=== PATIENT | male | born 1960 | race Caucasian/White ===

== ENCOUNTER → 2021-01-27 07:01 | Outpatient (CLI) | payer OTHER, SELFPAY ==
[2021-01-27 10:23] LABS: Absolute Lymphocyte Count 1.28 X10^3/uL (0.83-4.51); Absolute Neutrophil Count 2.9 X10^3/uL (2.0-7.7); Basophil# 0.03 X10^3/uL; Basophil% 0.6 % (0-1); Eosinophil# 0.16 X10^3/uL; Eosinophils% 3.3 % (0-5); Hemoglobin 13.9 g/dL (13.0-16.5); Lymphocyte # 1.28 X10^3/ul (4.0); Lymphocyte % 26.1 % (19-41); Mean Corp Hgb Conc 33.9 g/dL (32-36); Mean Corpuscular Hgb 32.3 pg (27.0-32.0); Mean Corpuscular Volume 95.3 fL (80-94); Mean Platelet Vol. 9.8 fl (6.2-12.0); Monocyte% 10.2 % (0-10); NRBC Flagged by Analyzer 0 % (0-5); Neutrophil # 2.92 X10^3/uL (2.7-7.7); Neutrophil % 59.6 % (47-70); Platelet Count 261 K/mm3 (150-450); RBC Distribution Width CV 13.8 % (11.6-14.6); RBC Distribution Width SD 47.8 fl (35.1-43.9); White Blood Count 4.9 K/mm3 (4.4-11.0)
[2021-01-27 10:42] LABS: AST(SGOT) 21 U/L (15-37); Alanine Aminotransfer ALT/SGPT 31 U/L (16-61); Albumin, Serum 3.6 g/dL (3.2-5.0); Alkaline Phosphatase 69 U/L (45-117); Anion Gap 4 (5-15); BUN 20 mg/dL (7-18); BUN/Creat Ratio 22.6 RATIO (10-20); Calcium,Total 8.7 mg/dL (8.5-10.1); Chloride 106 mmol/L (98-107); Cholesterol 144 mg/dL (200); Creatinine, Serum 0.88 mg/dL (0.70-1.30); EST Glomerular Filtration Rate 94 mL/min (>60); Est Glom Filt Rate - Afr Amer 114 mL/min (>60); Globulin 3.5 g/dL (2.2-4.2); Glucose 90 mg/dL (74-106); High Density Lipoprotein 63 mg/dL; PSA,Total - Annual Screen 7.41 ng/mL (0.00-4.00); Potassium 4.2 mmol/L (3.5-5.1); Protein, Total 7.1 g/dL (6.4-8.2); Sodium Level 139 mmol/L (136-145); Triglycerides 48 mg/dL; Very Low Density Lipoprotein 10 mg/dL (5-40)
== END ==
PROVIDERS: PCP Family Medicine; Referring Provider Family Medicine; Visit Provider Family Medicine
DX: I10 Essential (primary) hypertension (principal); Z12.5 Encounter for screening for malignant neoplasm of prostate
CPT/HCPCS: 36415; 80053; 80061; 84153; 85025; G0103

== ENCOUNTER → 2021-03-14 | Outpatient (CLI) | payer OTHER, SELFPAY ==
--- NOTE | 2021-03-14 | PROSBIL_PTH ---
PATIENT: ASHISH WHITAKER LOC: [facility] U#:[id number] AGE/SX: 60/M ROOM: RE03/14/[address]: Dr. Morris Singh MD : 1960 BED: DIS: 03/14/2021 SPEC #: [id number] RECD: 03/14/21 13:21 STATUS: ANASTASIA THOMPSON #: [id number] KRISTYN: 03/14/21 00:[address]: Morris Singh DEPT: SURGICAL PATHOLOGY RECD BY: Ramez Dee ENTERED: 03/14/21 13:21 SP TYPE: PROST BX [facility] DR: Dr. Tyrone Faria MD Tissues: A - PROSTATE RIGHT B - PROSTATE RIGHT C - PROSTATE RIGHT D - PROSTATE LEFT E - PROSTATE LEFT F - PROSTATE LEFT Procedures: PROSTATE BX HEADER OPERATION: Prostate biopsy PRE-OP DIAGNOSIS: Elevated PSA TISSUE SUBMITTED: A - Right apex, B - Right mid, C - Right base, D - Left apex, E - Left mid, F - Left base MICROSCOPIC DIAGNOSIS A. Right prostate, apex, core biopsy: Prostatic tissue, negative for malignancy. B. Right prostate, mid, core biopsy: Prostatic tissue, negative for malignancy. Focal mild chronic inflammation. C. Right prostate, base, core biopsy: Prostatic tissue, negative for malignancy. Focal mild chronic inflammation. D. Left prostate, apex, core biopsy: Prostatic tissue, negative for malignancy. E. Left prostate, mid, core biopsy: Prostatic tissue, negative for malignancy. F. Left prostate, base, core biopsy: Prostatic tissue, negative for malignancy. Focal mild chronic inflammation. SJ:greta 03/15/2021 MICROSCOPIC DESCRIPTION Slides are reviewed. GROSS DESCRIPTION A - Received is one container designated prostate, right apex. The specimen consists of two elongated fragments of light sue-white soft tissue each measuring 1.5 cm in length and 0.1 cm in diameter. The specimen is totally submitted in one cassette. B - Received is one container designated prostate, right mid. The specimen consists of two elongated fragments of light sue-white soft tissue measuring 1.2 and 1.6 cm in length and 0.1 cm in diameter. The specimen is totally submitted in one cassette. C - Received is one container designated prostate, right base. The specimen consists of two elongated fragments of light sue-white soft tissue each measuring 1.5 cm in length and 0.1 cm in diameter. The specimen is totally submitted in one cassette. D - Received is one container designated prostate, left apex. The specimen consists of two elongated fragments of light sue-white soft tissue measuring 1.5 and 1.7 cm in length and 0.1 cm in diameter. The specimen is totally submitted in one cassette. E - Received is one container designated prostate, left mid. The specimen consists of two elongated fragments of light sue-white soft tissue each measuring 1.6 cm in length and 0.1 cm in diameter. The specimen is totally submitted in one cassette. F - Received is one container designated prostate, left base. The specimen consists of two elongated fragments of light sue-white soft tissue each measuring 1.5 cm in length and 0.1 cm in diameter. The specimen is totally submitted in one cassette. / SJ:rg 03/14/21 TC:3 CPT: 88123 x6
== END | disposition home or self-care (01) ==
LOC: LABSPEC 12:55
PROVIDERS: PCP Family Medicine; Referring Provider Urology; Visit Provider Urology
DX: R97.20 Elevated prostate specific antigen [PSA] (principal)
CPT/HCPCS: 88305; G0416

== ENCOUNTER → 2021-03-24 07:03 | Outpatient (CLI) | payer OTHER, SELFPAY ==
[2021-03-24 10:34] LABS: Anion Gap 7 (5-15); BUN 24 mg/dL (7-18); BUN/Creat Ratio 25.6 RATIO (10-20); Calcium,Total 8.5 mg/dL (8.5-10.1); Chloride 105 mmol/L (98-107); Creatinine, Serum 0.94 mg/dL (0.70-1.30); EST Glomerular Filtration Rate 88 mL/min (>60); Est Glom Filt Rate - Afr Amer 106 mL/min (>60); Glucose 116 mg/dL (74-106); Potassium 3.7 mmol/L (3.5-5.1); Sodium Level 141 mmol/L (136-145)
== END ==
PROVIDERS: PCP Family Medicine; Referring Provider Family Medicine; Visit Provider Family Medicine
DX: I10 Essential (primary) hypertension (principal)
CPT/HCPCS: 36415; 80048

== ENCOUNTER → 2021-09-16 09:36 | Outpatient (CLI) | payer OTHER, SELFPAY ==
[2021-09-16 12:58] LABS: PSA,Total- Diagnostic 5.12 ng/mL (0.0-4.0)
== END ==
PROVIDERS: PCP Family Medicine; Referring Provider Urology; Visit Provider Urology
DX: R97.20 Elevated prostate specific antigen [PSA] (principal)
CPT/HCPCS: 36415; 84153

== ENCOUNTER → 2022-12-19 | Outpatient (CLI) | payer BC, SELFPAY ==
[2022-12-19 11:09] LABS: PSA,Total- Diagnostic 6.61 ng/mL (0.0-4.0)
== END | disposition home or self-care (01) ==
LOC: LAB 10:07
PROVIDERS: PCP Family Medicine; Visit Provider Urology
DX: N40.0 Benign prostatic hyperplasia without lower urinary tract symptoms (principal)
CPT/HCPCS: 36415; 84153

== ENCOUNTER → 2023-01-09 | Outpatient (CLI) | payer BC, SELFPAY ==
[2023-01-09 10:00] LABS: Absolute Lymphocyte Count 0.93 X10^3/uL (0.83-4.51); Absolute Neutrophil Count 3.7 X10^3/uL (2.0-7.7); Basophil# 0.02 X10^3/uL; Basophil% 0.4 % (0-1); Eosinophil# 0.16 X10^3/uL; Eosinophils% 3.1 % (0-5); Hematocrit 41.9 % (40-54); Hemoglobin 14.1 g/dL (13.0-16.5); Lymphocyte # 0.93 X10^3/ul (0.83-4.51); Lymphocyte % 17.8 % (19-41); Mean Corp Hgb Conc 33.7 g/dL (32-36); Mean Corpuscular Hgb 31.6 pg (27.0-32.0); Mean Corpuscular Volume 93.9 fL (80-94); Mean Platelet Vol. 9.8 fl (6.2-12.0); Monocyte# 0.46 X10^3/uL; Monocyte% 8.8 % (0-10); NRBC Flagged by Analyzer 0 % (0-5); Neutrophil # 3.65 X10^3/uL (2.7-7.7); Neutrophil % 69.7 % (47-70); Platelet Count 242 K/mm3 (150-450); RBC Distribution Width CV 13.2 % (11.6-14.6); RBC Distribution Width SD 45.2 fl (35.1-43.9); Red Blood Count 4.46 M/mm3 (4.6-6.2); White Blood Count 5.2 K/mm3 (4.4-11.0)
[2023-01-09 10:18] LABS: ALB/GLOB Ratio 0.9 RATIO (0.9-2.4); AST(SGOT) 20 U/L (15-37); Alanine Aminotransfer ALT/SGPT 26 U/L (16-61); Albumin, Serum 3.6 g/dL (3.2-5.0); Alkaline Phosphatase 66 U/L (45-117); Anion Gap 8 (5-15); BUN 22 mg/dL (7-18); BUN/Creat Ratio 25.5 RATIO (10-20); Calcium,Total 9.1 mg/dL (8.5-10.1); Chloride 103 mmol/L (98-107); Cholesterol 157 mg/dL (200); Creatinine, Serum 0.86 mg/dL (0.70-1.30); EST Glomerular Filtration Rate 96 mL/min (>60); Est Glom Filt Rate - Afr Amer 116 mL/min (>60); Globulin 3.8 g/dL (2.2-4.2); Glucose 101 mg/dL (74-106); High Density Lipoprotein 69 mg/dL; Potassium 4.1 mmol/L (3.5-5.1); Protein, Total 7.4 g/dL (6.4-8.2); Sodium Level 138 mmol/L (136-145); Triglycerides 46 mg/dL; Very Low Density Lipoprotein 9 mg/dL (5-40)
[2023-01-09 10:19] LABS: Hemoglobin A1c 5.6 % (3.8-5.6)
[2023-01-09 10:23] LABS: Microalbumin,Random Urine 9.3 mg/L (NO RANGE EST.)
== END | disposition home or self-care (01) ==
LOC: MTLAB 07:05
PROVIDERS: PCP Family Medicine; Referring Provider Family Medicine; Visit Provider Family Medicine
DX: E66.9 Obesity, unspecified (principal); I10 Essential (primary) hypertension
CPT/HCPCS: 36415; 80053; 80061; 82043; 83036; 85025

== ENCOUNTER → 2024-01-01 | Outpatient (CLI) | payer OTHER, SELFPAY ==
[2024-01-01 11:29] LABS: PSA,Total- Diagnostic 5.34 ng/mL (0.0-4.0)
== END | disposition home or self-care (01) ==
PROVIDERS: PCP Family Medicine; Referring Provider Nurse Practitioner; Visit Provider Nurse Practitioner
DX: R97.20 Elevated prostate specific antigen [PSA] (principal)
CPT/HCPCS: 36415; 84153

== ENCOUNTER → 2024-01-24 | Outpatient (CLI) | payer OTHER, SELFPAY ==
[2024-01-24 15:15] LABS: Absolute Lymphocyte Count 1.07 X10^3/uL (0.83-4.51); Absolute Neutrophil Count 4.4 X10^3/uL (2.0-7.7); Basophil# 0.02 X10^3/uL; Basophil% 0.3 % (0-1); Eosinophil# 0.12 X10^3/uL; Eosinophils% 1.9 % (0-5); Hemoglobin 13.4 g/dL (13.0-16.5); Lymphocyte # 1.07 X10^3/ul (0.83-4.51); Lymphocyte % 17.2 % (19-41); Mean Corp Hgb Conc 32.7 g/dL (32-36); Mean Corpuscular Volume 94.9 fL (80-94); Mean Platelet Vol. 10.2 fl (6.2-12.0); Monocyte% 9.7 % (0-10); NRBC Flagged by Analyzer 0 % (0-5); Neutrophil # 4.38 X10^3/uL (2.7-7.7); Neutrophil % 70.6 % (47-70); Platelet Count 254 K/mm3 (150-450); RBC Distribution Width CV 13.5 % (11.6-14.6); RBC Distribution Width SD 47.1 fl (35.1-43.9); Red Blood Count 4.32 M/mm3 (4.6-6.2); White Blood Count 6.2 K/mm3 (4.4-11.0)
[2024-01-24 15:34] LABS: AST(SGOT) 22 U/L (15-37); Alanine Aminotransfer ALT/SGPT 27 U/L (16-61); Albumin, Serum 3.6 g/dL (3.2-5.0); Alkaline Phosphatase 68 U/L (45-117); Anion Gap 6 (5-15); BUN 20 mg/dL (7-18); BUN/Creat Ratio 25.4 RATIO (10-20); Calcium,Total 9.2 mg/dL (8.5-10.1); Chloride 105 mmol/L (98-107); Cholesterol 145 mg/dL (200); Creatinine, Serum 0.79 mg/dL (0.70-1.30); EST Glomerular Filtration Rate 106 mL/min (>60); Est Glom Filt Rate - Afr Amer 128 mL/min (>60); Globulin 3.6 g/dL (2.2-4.2); Glucose 98 mg/dL (74-106); Hemoglobin A1c 5.4 % (3.8-5.6); High Density Lipoprotein 59 mg/dL; Potassium 4.2 mmol/L (3.5-5.1); Protein, Total 7.2 g/dL (6.4-8.2); Sodium Level 138 mmol/L (136-145); Triglycerides 70 mg/dL; Very Low Density Lipoprotein 14 mg/dL (5-40)
[2024-01-24 15:52] LABS: Microalbumin,Random Urine 8.6 mg/L (NO RANGE EST.); Microalbumin:Creatinine Ratio 5.1 mg/g CRE (<30 mg/g CRE)
== END | disposition home or self-care (01) ==
LOC: MFPLAB 11:59
PROVIDERS: PCP Family Medicine; Visit Provider Family Medicine
DX: I10 Essential (primary) hypertension (principal)
CPT/HCPCS: 36415; 80053; 80061; 82043; 82570; 83036; 85025

== ENCOUNTER → 2025-01-29 | Outpatient (CLI) | payer OTHER, SELFPAY ==
[2025-01-29 10:19] LABS: Absolute Lymphocyte Count 1.22 X10^3/uL (0.83-4.51); Absolute Neutrophil Count 3.1 X10^3/uL (2.0-7.7); Basophil# 0.02 X10^3/uL; Basophil% 0.4 % (0-1); Eosinophil# 0.14 X10^3/uL; Eosinophils% 2.8 % (0-5); Hematocrit 38.1 % (40-54); Hemoglobin 13.2 g/dL (13.0-16.5); Lymphocyte # 1.22 X10^3/ul (0.83-4.51); Lymphocyte % 24.8 % (19-41); Mean Corp Hgb Conc 34.6 g/dL (32-36); Mean Corpuscular Hgb 31.8 pg (27.0-32.0); Mean Corpuscular Volume 91.8 fL (80-94); Mean Platelet Vol. 10.2 fl (6.2-12.0); Monocyte# 0.48 X10^3/uL; Monocyte% 9.8 % (0-10); NRBC Flagged by Analyzer 0 % (0-5); Neutrophil # 3.05 X10^3/uL (2.7-7.7); Platelet Count 246 K/mm3 (150-450); RBC Distribution Width CV 13.4 % (11.6-14.6); RBC Distribution Width SD 44.5 fl (35.1-43.9); Red Blood Count 4.15 M/mm3 (4.6-6.2); White Blood Count 4.9 K/mm3 (4.4-11.0)
[2025-01-29 19:51] LABS: ALB/GLOB Ratio 1.5 RATIO (0.9-2.4); AST(SGOT) 19 U/L (<=37); Alanine Aminotransfer ALT/SGPT 19 U/L (<=46); Albumin, Serum 3.6 g/dL (3.4-4.8); Alkaline Phosphatase 64 U/L (40-129); Anion Gap 12 (5-15); BUN 14 mg/dL (4-19); BUN/Creat Ratio 15.7 RATIO (10-20); Calcium,Total 8.9 mg/dL (7.6-11.0); Carbon Dioxide 22.1 mmol/L (21.0-32.0); Chloride 104 mmol/L (98-108); Creatinine, Serum 0.87 mg/dL (0.70-1.20); EST Glomerular Filtration Rate 98 (>60); Globulin 2.4 g/dL (2.2-4.2); Glucose 99 mg/dL (70-99); PSA,Total - Annual Screen 4.65 ng/mL (0.02-4.00); Potassium 4.3 mmol/L (3.3-5.1); Protein, Total 6.1 g/dL (5.9-8.4); Sodium Level 138 mmol/L (133-145); Total Bilirubin 0.27 mg/dL (0.00-1.30)
[2025-01-29 20:30] LABS: Cholesterol 141 mg/dL (<=200); High Density Lipoprotein 60 mg/dL; Low Density Lipoprotein Calc. 73 mg/dL; Triglycerides 43 mg/dL; Very Low Density Lipoprotein 9 mg/dL (5-40); cholesterol:hdl ratio screen 2.37
== END | disposition home or self-care (01) ==
LOC: MTLAB 07:59
PROVIDERS: PCP Family Medicine; Referring Provider Family Medicine; Visit Provider Family Medicine
DX: I10 Essential (primary) hypertension (principal); N40.0 Benign prostatic hyperplasia without lower urinary tract symptoms
CPT/HCPCS: 36415; 80053; 80061; 84153; 85025; G0103

== ENCOUNTER → 2025-07-02 | Outpatient (CLI) | payer OTHER, SELFPAY ==
--- OUTSIDE RECORDS SUMMARY | 2025-07-02 08:38 | XMS RPT_ITS | CCD ---
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 Role Phone Wade SCHROEDER, Rosario Primary Care Provider Rosario Olvera MD Attending Provider Rosario Olvera MD Referring Provider Rosario Olvera Referring Unavailable Rosario Olvera Attending Unavailable Rosario Olvera Primary Care Unavailable Problems Problem Classification Problem Date Documented Da te Episodic/Chronic Essential hypertension (1 source) Essential (primary) hypertension; Translations: [Essential (primary) hypertension] Onset: 02-03-2025 Chronic Results Test Name Value Interpretation Reference Range Facility Absolute neutrophil countOrd ered By: Rosario Olvera on 01-29-2025 Neutrophils (Bld) [#/Vol] 3.1 10*3/uL 2.0-7.7 [facility] Anion gap in Serum or Plasma Ordered By: Rosario Olvera on 01-29-2025 Anion gap [Moles/Vol] 12 mmol/L 5-15 [facility] Automated blood erythrocyte countOrdered By: Rosario Olvera on 01-29-2025 RBC (Bld) [#/Vol] 4.15 10*6/uL Low 4.6-6.2 [facility] Comment on above: Order Comment: Order Date: 01/27/25 Order Info: [id number] - CBCD Performed By: #### L 501.9910, L500.4050, L500.4100, L100.0100 #### [facility] [address] [place], [place], [address] Automated blood hematocrit ( percentage)Ordered By: Rosario Olvera on 01-29-2025 Hematocrit (Bld) [Volume fraction] 38.1 % Low 40-54 [facility] Comment on above: Order Comment: Order Date: 01/27/25 Order Info: [id number] - CBCD Performed By: #### L 501.9910, L500.4050, L500.4100, L100.0100 #### [facility] [address] [place], [place], [address] Automated lymphocyte count a s percentage of total leukocytesOrdered By: Rosario Olvera on 01-29-2025 Lymphocytes/100 WBC (Bld) 24.8 % Normal 19-41 [facility] Comment on above: Order Comment: Order Date: 01/27/25 Order Info: [id number]- - CBCD Performed By: #### L 501.9910, L500.4050, L500.4100, L100.0100 #### [facility] [address] [place], [place], [id number] BUN/creatinine ratioOrdered By: Rosario Olvera on 01-29-2025 Urea nitrogen/Creatinine [Mass ratio] 15.7 mg/mg 10-20 [facility] Basophil percentageOrdered B y: Rosario Olvera on 01-29-2025 Basophils/100 WBC (Bld) 0.4 % Normal 0-1 [facility] Comment on above: Order Comment: Order Date: 01/27/25 Order Info: [id number]- - CBCD Performed By: #### L 501.9910, L500.4050, L500.4100, L100.0100 #### [facility] [address] [place], [place], [address] Bilirubin, totalOrdered By: Rosario Olvera on 01-29-2025 Bilirubin [Mass/Vol] 0.27 mg/dL Normal 0.00-1.30 [facility] Comment on above: Order Comment: Order Date: 01/27/25 Order Info: [id number] - CMP Order Info: [id number] - LIPID Order Info: [id number] - PSA Performed By: #### L 501.9910, L500.4050, L500.4100, L100.0100 #### [facility] [address] [place], [address] CBC W/Diff, Automatedon 01-04 Absolute Lymph 1.22 X10 3/uL Normal 0.83-4.51 [facility] Comment on above: Order Comment: Order Date: 01/27/25 Order Info: [id number] - CBCD Performed By: #### L 501.9910, L500.4050, L500.4100, L100.0100 #### [facility] [address] [place], [address] Absolute Neut 3.1 X10 3/uL Normal 2.0-7.7 [facility] Comment on above: Order Comment: Order Date: 01/27/25 Order Info: [id number]- - CBCD Performed By: #### L 501.9910, L500.4050, L500.4100, L100.0100 #### [facility] [address] [place], [address] IG% 0.200 Normal 0.0-0.9 [facility] Comment on above: Order Comment: Order Date: 01/27/25 Order Info: [id number] - CBCD Result Comment: IG% - Immature Granulocytes (promyelocytes, myelocytes and metamyelocytes) > 1% indicates that a LEFT SHIFT is Present. Performed By: #### L 501.9910, L500.4050, L500.4100, L100.0100 #### [facility] [address] [place], [address] Nucleated RBC (Bld) [#/Vol] 0 10*3/uL Normal 0-5 [facility] Comment on above: Order Comment: Order Date: 01/27/25 Order Info: [id number] - CBCD Performed By: #### L 501.9910, L500.4050, L500.4100, L100.0100 #### [facility] [address] [place], [place], [address] RDW SD 44.5 fl High 35.1-43.9 [facility] Comment on above: Order Comment: Order Date: 01/27/25 Order Info: [id number] - CBCD Performed By: #### L 501.9910, L500.4050, L500.4100, L100.0100 #### [facility] [address] [place], [place], [id number] Calculated very low density lipoprotein (VLDL) cholesterol measurementOrdered By: Rosario Olvera on 01-29-2025 VLDL Cholesterol 9 mg/dL 5-40 [facility] Carbon dioxide, total [Moles /volume] in Central venous bloodOrdered By: Rosario Olvera on 01-29-2025 CO2 [Moles/Vol] 22.1 mmol/L Normal 21.0-32.0 [facility] Comment on above: Order Comment: Order Date: 01/27/25 Order Info: [id number] - CMP Order Info: [id number] - LIPID Order Info: [id number] - PSA Performed By: #### L 501.9910, L500.4050, L500.4100, L100.0100 #### [facility] [address] [place], [address] Chloride assayOrdered By: Patrick Olvera on 01-29-2025 Chloride [Moles/Vol] 104 mmol/L Normal 98-108 [facility] Comment on above: Order Comment: Order Date: 01/27/25 Order Info: [id number] - CMP Order Info: [id number] - LIPID Order Info: [id number] - PSA Performed By: #### L 501.9910, L500.4050, L500.4100, L100.0100 #### [facility] [address] [place], [address] Comprehensive Metabolic Prof ilon 01-29-2025 ALK PHOS 64 U/L Normal 40-129 [facility] Comment on above: Order Comment: Order Date: 01/27/25 Order Info: [id number] - CMP Order Info: [id number] - LIPID Order Info: [id number] - PSA Performed By: #### L 501.9910, L500.4050, L500.4100, L100.0100 #### [facility] [address] [place], [address] BUN/CRE 15.7 RATIO Normal 10-20 [facility] Comment on above: Order Comment: Order Date: 01/27/25 Order Info: [id number] - CMP Order Info: [id number] - LIPID Order Info: [id number] - PSA Performed By: #### L 501.9910, L500.4050, L500.4100, L100.0100 #### [facility] [address] [place], [address] GAP 12 Normal 5-15 [facility] Comment on above: Order Comment: Order Date: 01/27/25 Order Info: [id number]- - CMP Order Info: [id number] - LIPID Order Info: [id number] - PSA Performed By: #### L 501.9910, L500.4050, L500.4100, L100.0100 #### [facility] [address] [place], [address] GFR/1.73 sq M.predicted among non-blacks MDRD (S/P/Bld) [Vol rate/Area] 98 mL/min/{1.73_m2} Normal >[address] [facility] Comment on above: Order Comment: Order Date: 01/27/25 Order Info: [id number] - CMP Order Info: [id number] - LIPID Order Info: [id number] - PSA Result Comment: mL/m in/1.73m2 CKD-EPI Creatinine Equation (2020) Performed By: #### L 501.9910, L500.4050, L500.4100, L100.0100 #### [facility] [address] [place], [address] T PROT 6.1 g/dL Normal 5.9-8.4 [facility] Comment on above: Order Comment: Order Date: 01/27/25 Order Info: [id number] - CMP Order Info: [id number] - LIPID Order Info: [id number] - PSA Performed By: #### L 501.9910, L500.4050, L500.4100, L100.0100 #### [facility] [address] [place], [address] Comprehensive Metabolic Prof ilOrdered By: Rosario Olvera on 01-29-2025 AST [Catalytic activity/Vol] 19 U/L Normal <=37 [facility] Comment on above: Order Comment: Order Date: 01/27/25 Order Info: [id number] - CMP Order Info: [id number] - LIPID Order Info: [id number] - PSA Performed By: #### L 501.9910, L500.4050, L500.4100, L100.0100 #### [facility] [address] [place], [place], [id number] Eosinophil percentageOrdered By: Rosario Olvera on 01-29-2025 Eosinophils/100 WBC (Bld) 2.8 % Normal 0-5 [facility] Comment on above: Order Comment: Order Date: 01/27/25 Order Info: [id number] - CBCD Performed By: #### L 501.9910, L500.4050, L500.4100, L100.0100 #### [facility] [address] [place], [address] Erythrocyte distribution wid th ratioOrdered By: Rosario Olvera on 01-29-2025 Erythrocyte distribution width (RBC) [Ratio] 13.4 % Normal 11.6-14.6 [facility] Comment on above: Order Comment: Order Date: 01/27/25 Order Info: [id number] - CBCD Performed By: #### L 501.9910, L500.4050, L500.4100, L100.0100 #### [facility] [address] [place], [place], [address] Erythrocyte distribution wid th standard deviationOrdered By: Rosario Olvera on 01-29-2025 Erythrocyte distribution width (RBC) [Entitic vol] 44.5 fL High 35.1-43.9 [facility] GFR/1.73 sq M.predicted mary alice g non-blacks MDRD (S/P/Bld) [Vol rate/Area]Ordered By: Rosario Olvera on 01-29-2025 Estimated GFR (MDRD) Non-Af Amer 98 >60 [facility] Comment on above: mL/min/1.73m2 CKD-EP I Creatinine Equation (2020) Hemoglobin measurementOrdere d By: Rosario Olvera on 01-29-2025 Hemoglobin (Bld) [Mass/Vol] 13.2 g/dL Normal 13.0-16.5 [facility] Comment on above: Order Comment: Order Date: 01/27/25 Order Info: [id number] - CBCD Performed By: #### L 501.9910, L500.4050, L500.4100, L100.0100 #### [facility] [address] [place], [address] Immature granulocytes/100 WB C Auto (Bld)Ordered By: Rosario Olvera on 01-29-2025 Immature granulocytes/100 WBC (Bld) 0.200 % 0.0-0.9 [facility] Comment on above: IG% - Immature Granu locytes (promyelocytes, myelocytes and metamyelocytes) > 1% indicates that a LEFT SHIFT is Present. LDL calc ser/plasOrdered By: Rosario Olvera on 01-29-2025 LDL Cholesterol, Calculated 73 mg/dL [facility] Comment on above: Xzcjwekyql=835-679 m g/dL & Higher Bqco=200 mg/dL or greater Lipid Profileon 01-29-2025 CHOL:HDL 2.37 Normal [facility] Comment on above: Order Comment: Order Date: 01/27/25 Order Info: [id number] - CMP Order Info: [id number] - LIPID Order Info: [id number] - PSA Performed By: #### L 501.9910, L500.4050, L500.4100, L100.0100 #### [facility] [address] [place], [address] Cholesterol in LDL [Mass/Vol] 73 mg/dL Normal [facility] Comment on above: Order Comment: Order Date: 01/27/25 Order Info: [id number] - CMP Order Info: [id number] - LIPID Order Info: [id number] - PSA Result Comment: Bord zigdue=589-312 mg/dL Higher Xvuc=726 mg/dL or greater Performed By: #### L 501.9910, L500.4050, L500.4100, L100.0100 #### [facility] [address] [place], [address] Cholesterol in VLDL [Mass/Vol] 9 mg/dL Normal 5-40 [facility] Comment on above: Order Comment: Order Date: 01/27/25 Order Info: [id number] - CMP Order Info: [id number] - LIPID Order Info: [id number] - PSA Performed By: #### L 501.9910, L500.4050, L500.4100, L100.0100 #### [facility] [address] [place], [address] Lymphocytes Auto (Unsp spec) [#/Vol]Ordered By: Rosario Olvera on 01-29-2025 Lymphocytes (Bld) [#/Vol] 1.22 10*3/uL 0.83-4.5 1 [facility] MCV (mean corpuscular volume ) determinationOrdered By: Rosario Olvera on 01-29-2025 MCV (RBC) [Entitic vol] 91.8 fL Normal 80-94 [facility] Comment on above: Order Comment: Order Date: 01/27/25 Order Info: [id number] - CBCD Performed By: #### L 501.9910, L500.4050, L500.4100, L100.0100 #### [facility] [address] [place], [address] Mean corpuscular hemoglobin (MCH) determinationOrdered By: Rosario Olvera on 01-29-2025 MCH (RBC) [Entitic mass] 31.8 pg Normal 27.0-32.0 [facility] Comment on above: Order Comment: Order Date: 01/27/25 Order Info: [id number] - CBCD Performed By: #### L 501.9910, L500.4050, L500.4100, L100.0100 #### [facility] [address] [place], [place], [address] Mean corpuscular hemoglobin concentration (MCHC) determinationOrdered By: Rosario Olvera on 01-29-2025 MCHC (RBC) [Mass/Vol] 34.6 g/dL Normal 32-36 [facility] Comment on above: Order Comment: Order Date: 01/27/25 Order Info: [id number]- - CBCD Performed By: #### L 501.9910, L500.4050, L500.4100, L100.0100 #### [facility] [address] [place], [place], [address] Mean platelet volume determi nationOrdered By: Rosario Olvera on 01-29-2025 Platelet mean volume (Bld) [Entitic vol] 10.2 fL Normal 6.2-12.0 [facility] Comment on above: Order Comment: Order Date: 01/27/25 Order Info: [id number] - CBCD Performed By: #### L 501.9910, L500.4050, L500.4100, L100.0100 #### [facility] [address] [place], [place], [address] Monocyte percentageOrdered B y: Samanaustyn Wade on 01-29-2025 Monocytes/100 WBC (Bld) 9.8 % Normal 0-10 [facility] Comment on above: Order Comment: Order Date: 01/27/25 Order Info: [id number] - CBCD Performed By: #### L 501.9910, L500.4050, L500.4100, L100.0100 #### [facility] [address] [place], [address] Neutrophil percentageOrdered By: Rosario Olvera on 01-29-2025 Neutrophils/100 WBC (Bld) 62.0 % Normal 47-70 [facility] Comment on above: Order Comment: Order Date: 01/27/25 Order Info: [id number] - CBCD Performed By: #### L 501.9910, L500.4050, L500.4100, L100.0100 #### [facility] [address] [place], [address] Nucleated red blood cell per centageOrdered By: Rosario Olvera on 01-29-2025 Nucleated RBC/100 WBC (Bld) [Ratio] 0 % 0-5 [facility] PSA, total screeningOrdered By: Rosario Olvera on 01-29-2025 Prostate Specific Antigen Screen 4.65 ng/mL High 0.02-4.00 [facility] Comment on above: This test was perfor med using the [employer] tPSA method. Measured values of a patient sample can vary depending on the testing procedure used. PSA values determined on patient samples by different testing procedures cannot be used interchangeably. If there is a change in PSA assays while monitoring therapy, sequential testing should be performed to confirm baseline values. PSA,Total - Annual Screenon 01-29-2025 PSA,TOT SCREEN 4.65 ng/mL High 0.02-4.00 [facility] Comment on above: Order Comment: Order Date: 01/27/25 Order Info: [id number] - CMP Order Info: [id number] - LIPID Order Info: [id number] - PSA Result Comment: This test was performed using the [employer] tPSA method. Measured values of a patient??sample can vary depending on the testing procedure used. PSA values determined on patient samples by different testing procedures cannot be used interchangeably. If there is a change in PSA assays while monitoring therapy, sequential testing should be performed to confirm baseline values. Performed By: #### L 501.9910, L500.4050, L500.4100, L100.0100 #### [facility] [address] [place], [address] Platelet countOrdered By: Patrick Olvera on 01-29-2025 Platelets (Bld) [#/Vol] 246 10*3/uL Normal 150-450 [facility] Comment on above: Order Comment: Order Date: 01/27/25 Order Info: [id number] - CBCD Performed By: #### L 501.9910, L500.4050, L500.4100, L100.0100 #### [facility] [address] [place], [address] Potassium measurement (mass/ volume)Ordered By: Rosario Olvera on 01-29-2025 Potassium [Moles/Vol] 4.3 mmol/L Normal 3.3-5.1 [facility] Comment on above: Order Comment: Order Date: 01/27/25 Order Info: [id number] - CMP Order Info: [id number] - LIPID Order Info: [id number] - PSA Performed By: #### L 501.9910, L500.4050, L500.4100, L100.0100 #### [facility] [address] [place], [address] Screening total cholesterol/ high density lipoprotein (HDL) cholesterol ratioOrdered By: Rosario Olvera on 01-29-2025 Cholesterol.total/Cholest campos in HDL [Mass ratio] 2.37 {ratio} [facility] Serum creatinine measurement (mass/volume)Ordered By: Rosario Olvera on 01-29-2025 Creatinine [Mass/Vol] 0.87 mg/dL Normal 0.70-1.20 [facility] Comment on above: Order Comment: Order Date: 01/27/25 Order Info: [id number] - CMP Order Info: [id number] - LIPID Order Info: [id number] - PSA Performed By: #### L 501.9910, L500.4050, L500.4100, L100.0100 #### [facility] [address] [place], [address] Serum globulin measurementOr dered By: Rosario Olvera on 01-29-2025 Globulin (S) [Mass/Vol] 2.4 g/dL Normal 2.2-4.2 [facility] Comment on above: Order Comment: Order Date: 01/27/25 Order Info: [id number]- - CMP Order Info: [id number] - LIPID Order Info: [id number] - PSA Performed By: #### L 501.9910, L500.4050, L500.4100, L100.0100 #### [facility] [address] [place], [address] Serum glucose measurement (m ass/volume)Ordered By: Rosario Olvera on 01-29-2025 Glucose [Mass/Vol] 99 mg/dL Normal 70-99 [facility] Comment on above: Order Comment: Order Date: 01/27/25 Order Info: [id number] - CMP Order Info: - LIPID Order Info: [id number] - PSA Performed By: #### L 501.9910, L500.4050, L500.4100, L100.0100 #### [facility] [address] [place], [address] Serum or plasma alanine roque otransferase (ALT) measurementOrdered By: Rosario Olvera on 01-29-2025 ALT [Catalytic activity/Vol] 19 U/L Normal <=46 [facility] Comment on above: Order Comment: Order Date: 01/27/25 Order Info: [id number] - CMP Order Info: - LIPID Order Info: [id number] - PSA Performed By: #### L 501.9910, L500.4050, L500.4100, L100.0100 #### [facility] [address] [place], [address] Serum or plasma albumin karina urement (mass/volume)Ordered By: Rosario Olvera on 01-29-2025 Albumin [Mass/Vol] 3.6 g/dL Normal 3.4-4.8 [facility] Comment on above: Order Comment: Order Date: 01/27/25 Order Info: 07- - CMP Order Info: - LIPID Order Info: [id number] - PSA Performed By: #### L 501.9910, L500.4050, L500.4100, L100.0100 #### [facility] [address] [place], [place], [address] Serum or plasma albumin/glob ulin mass ratioOrdered By: Rosario Olvera on 01-29-2025 Albumin/Globulin [Mass ratio] 1.5 {ratio} Normal 0.9-2.4 [facility] Comment on above: Order Comment: Order Date: 01/27/25 Order Info: [id number] - CMP Order Info: - LIPID Order Info: [id number] - PSA Performed By: #### L 501.9910, L500.4050, L500.4100, L100.0100 #### [facility] [address] [place], [address] Serum or plasma alkaline sangeeta sphatase measurementOrdered By: Rosario Olvera on 01-29-2025 ALP [Catalytic activity/Vol] 64 U/L 40-129 [facility] Serum or plasma calcium karina urement (mass/volume)Ordered By: Rosario Olvera on 01-29-2025 Calcium [Mass/Vol] 8.9 mg/dL Normal 7.6-11.0 [facility] Comment on above: Order Comment: Order Date: 01/27/25 Order Info: [id number]- - CMP Order Info: - LIPID Order Info: [id number] - PSA Performed By: #### L 501.9910, L500.4050, L500.4100, L100.0100 #### [facility] [address] [place], [place], [address] Serum or plasma cholesterol in HDL measurement (mass/volume)Ordered By: Rosario Olvera on 01-29-2025 Cholesterol in HDL [Mass/Vol] 60 mg/dL Normal [facility] Comment on above: National Cholesterol Education Program (NCEP) guidelines:<40 mg/dL: Low HDL-cholesterol (major risk factor for CHD)>= 60 mg/dL: High HDL-cholesterol (negative risk factor for CHD)HDL-cholesterol is affected by a number of factors, e.g. smoking, exercise, hormones, sex and age. Order Comment: Order Date: 01/27/25 Order Info: [id number] - CMP Order Info: [id number] - LIPID Order Info: [id number] - PSA Result Comment: Gifty onal Cholesterol Education Program (NCEP) guidelines: <40 mg/dL: Low HDL-cholesterol (major risk factor for CHD) >= 60 mg/dL: High HDL-cholesterol (negative risk factor for CHD) HDL-cholesterol is affected by a number of factors, e.g. smoking, exercise, hormones, sex and age. Performed By: #### L 501.9910, L500.4050, L500.4100, L100.0100 #### [facility] [address] [place], [address] Serum or plasma cholesterol measurement (mass/volume)Ordered By: Rosario Olvera on 01-29-2025 Cholesterol [Mass/Vol] 141 mg/dL Normal <=[address] [facility] Comment on above: Cholesterol level, D esirable <200 mg/dLBorderline high cholesterol 200-239 mg/dLHigh cholesterol >=240 mg/dLRecommendations of the NCEP Adult Treatment Panel for the following risk-cutoff thresholds for the [place] population. Order Comment: Order Date: 01/27/25 Order Info: [id number] - CMP Order Info: [id number] - LIPID Order Info: [id number] - PSA Result Comment: Chol esterol level, Desirable <200 mg/dL Borderline high cholesterol 200-239 mg/dL High cholesterol >=240 mg/dL Recommendations of the NCEP Adult Treatment Panel for the following risk-cutoff thresholds for the [place] population. Performed By: #### L 501.9910, L500.4050, L500.4100, L100.0100 #### [facility] [address] [place], [place], [address] Serum or plasma urea nitroge n measurement (mass/volume)Ordered By: Rosario Olvera on 01-29-2025 Urea nitrogen [Mass/Vol] 14 mg/dL Normal 4-19 [facility] Comment on above: Order Comment: Order Date: 01/27/25 Order Info: [id number]- - CMP Order Info: [id number] - LIPID Order Info: [id number] - PSA Performed By: #### L 501.9910, L500.4050, L500.4100, L100.0100 #### [facility] [address] [place], [place], [address] Sodium levelOrdered By: Saman austyn Wade on 01-29-2025 Sodium [Moles/Vol] 138 mmol/L Normal 133-145 [facility] Comment on above: Order Comment: Order Date: 01/27/25 Order Info: 0786 - CMP Order Info: [id number] - LIPID Order Info: [id number] - PSA Performed By: #### L 501.9910, L500.4050, L500.4100, L100.0100 #### [facility] [address] [place], [place], [address] Total proteinOrdered By: Kaylyn eason Wade on 01-29-2025 Protein [Mass/Vol] 6.1 g/dL 5.9-8.4 [facility] Triglycerides measurementOrd ered By: Samanaustyn Wade on 01-29-2025 Triglyceride [Mass/Vol] 43 mg/dL Normal [facility] Comment on above: The drugs N-Acetylcy steine and Metamizole may falsely depress this assay. Normal range: <150 mg/dLBorderline High: 150-199 mg/dLHigh: 200-499 mg/dLVery High: >500 mg/dL Order Comment: Order Date: 01/27/25 Order Info: [id number] - CMP Order Info: [id number] - LIPID Order Info: [id number] - PSA Result Comment: The drugs N-Acetylcysteine and Metamizole may falsely depress this assay. Normal range: <150 mg/dL Borderline High: 150-199 mg/dL High: 200-499 mg/dL Very High: >500 mg/dL Performed By: #### L 501.9910, L500.4050, L500.4100, L100.0100 #### [facility] [address] [place], [place], [address] White blood cell (WBC) count Ordered By: Rosario Olvera on 01-29-2025 WBC (Bld) [#/Vol] 4.9 10*3/uL Normal 4.4-11.0 [facility] Comment on above: Order Comment: Order Date: 01/27/25 Order Info: [id number] - CBCD Performed By: #### L 501.9910, L500.4050, L500.4100, L100.0100 #### [facility] [address] [place], [place], [address] Absolute lymphocyte countOrd ered By: Ashley Smith on 01-24-2024 Lymphocytes Auto (Unsp spec) [#/Vol] 1.07 10*3/uL 0.83-4.51 [facility] Automated lymphocyte count a s percentage of total leukocytesOrdered By: Ashley Smith on 01-24-2024 Lymphocytes/100 WBC Auto (Unsp spec) 17.2 % 19-41 [facility] Basophil percentageOrdered B y: Ashley Smith on 01-24-2024 Basophils/100 WBC (Bld) 0.3 % 0-1 [facility] Bilirubin [Mass/Vol] 0.60 mg/dL 0.20-1.00 [facility] Comment on above: For patients on eltr ombopag therapy, use of Dimension Stanley TBIL is not recommended. Chloride [Moles/Vol] 105 mmol/L 98-107 [facility] Cholesterol [Mass/Vol] 145 mg/dL <[address] [facility] Comment on above: <200 mg/dL Desirable 200-240 mg/dL Borderline >240 mg/dL High Risk Eosinophils/100 WBC (Bld) 1.9 % 0-5 [facility] Glucose [Mass/Vol] 98 mg/dL 74-106 [facility] Hemoglobin (Bld) [Mass/Vol] 13.4 g/dL 13.0-16.5 [facility] Monocytes/100 WBC (Bld) 9.7 % 0-10 [facility] Neutrophils (Bld) [#/Vol] 4.4 10*3/uL 2.0-7.7 [facility] Neutrophils/100 WBC (Bld) 70.6 % 47-70 [facility] Potassium [Moles/Vol] 4.2 mmol/L 3.5-5.1 [facility] Protein [Mass/Vol] 7.2 g/dL 6.4-8.2 [facility] Sodium [Moles/Vol] 138 mmol/L 136-145 [facility] Triglyceride [Mass/Vol] 70 mg/dL <199 [facility] Comment on above: The drugs N-Acetylcy steine and Metamizole may falsely depress this assay.Serum Triglycerides Reference Interval Normal <150 mg/dL Borderline high 150 - 199 mg/dL High 200 - 499 mg/dL Very High > or = 500 mg/dL WBC (Bld) [#/Vol] 6.2 10*3/uL 4.4-11.0 [facility] Determination of erythrocyte mean corpuscular volume (MCV)Ordered By: Ashley Smith on 01-24-2024 MCV (RBC) [Entitic vol] 94.9 fL 80-94 [facility] Erythrocyte distribution wid th ratioOrdered By: Ashley Smith on 01-24-2024 Erythrocyte distribution width (RBC) [Ratio] 13.5 % 11.6-14.6 [facility] Erythrocyte distribution wid th standard deviationOrdered By: Ashley Smith on 01-24-2024 Erythrocyte distribution width (RBC) [Entitic vol] 47.1 fL 35.1-43.9 [facility] Hematocrit Auto (Bld) [Volum e fraction]Ordered By: Ashley Smith on 01-24-2024 Hematocrit (Bld) [Volume fraction] 41.0 % 40-54 [facility] Immature granulocytes/100 WB C Auto (Bld)Ordered By: Ashley Smith on 01-24-2024 Immature granulocytes/100 WBC (Bld) 0.300 % 0.0-0.9 [facility] Comment on above: IG% - Immature Granu locytes (promyelocytes, myelocytes and metamyelocytes) > 1% indicates that a LEFT SHIFT is Present. Laboratory - Chemistry and C hemistry - challengeOrdered By: Ashley Smith on 01-24-2024 Albumin/Globulin [Mass ratio] 1.0 {ratio} 0.9-2.4 [facility] ALP [Catalytic activity/Vol] 68 U/L 45-117 [facility] ALT [Catalytic activity/Vol] 27 U/L 16-61 [facility] Cholesterol in HDL [Mass/Vol] 59 mg/dL >40 [facility] Comment on above: The drugs N-Acetylcy steine and Metamizole may falsely depress this assay. Reference Range HDL <40 mg/dL Low HDL Cholesterol HDL >or= 60 mg/dL High HDL Cholesterol Cholesterol in LDL [Mass/Vol] 72 mg/dL 0-130 [facility] CO2 [Moles/Vol] 27.0 mmol/L 21.0-32.0 [facility] Globulin (S) [Mass/Vol] 3.6 g/dL 2.2-4.2 [facility] Urea nitrogen/Creatinine [Mass ratio] 25.4 mg/mg 10-20 [facility] Laboratory - Hematology and Cell countsOrdered By: Ashley Smith on 01-24-2024 MCH (RBC) [Entitic mass] 31.0 pg 27.0-32.0 [facility] MCHC (RBC) [Mass/Vol] 32.7 g/dL 32-36 [facility] Nucleated RBC/100 WBC (Bld) [Ratio] 0 % 0-5 [facility] Platelet mean volume (Bld) [Entitic vol] 10.2 fL 6.2-12.0 [facility] Platelets (Bld) [#/Vol] 254 10*3/uL 150-450 [facility] No Panel InformationOrdered By: Ashley Smith on 01-24-2024 Estimated GFR (MDRD) Amer 128 mL/min >60 [facility] Comment on above: GFR Calc Estimated GFR (MDRD) Non-Af Amer 106 mL/min >60 [facility] Comment on above: Non- GFR Calc Urine Microalbumin/Creatinine Ratio 5.1 mg/g CRE <30 [facility] VLDL Cholesterol 14 mg/dL 5-40 [facility] RBC Auto (Bld) [#/Vol]Ordere d By: Ashley Smith on 01-24-2024 RBC (Bld) [#/Vol] 4.32 10*6/uL 4.6-6.2 [facility] Serum or plasma calcium karina urement (mass/volume)Ordered By: Ashley Smith on 01-24-2024 Calcium [Mass/Vol] 9.2 mg/dL 8.5-10.1 [facility] Serum or plasma creatinine m easurement (mass/volume)Ordered By: Ashley Smith on 01-24-2024 Creatinine [Mass/Vol] 0.79 mg/dL 0.70-1.30 [facility] Comment on above: The validity of the calculated GFR & GFRAA in patients over 70 years has not been determined. Clinical correlation is essential. Serum or plasma urea nitroge n measurement (mass/volume)Ordered By: Ashley Smith on 01-24-2024 Urea nitrogen [Mass/Vol] 20 mg/dL 7-18 [facility] Thin prep Papanicolaou smear with manual screeningOrdered By: Ashley Smith on 01-24-2024 Thin prep Papanicolaou smear with manual screening 3.6 g/dL 3.2-5.0 [facility] Thin prep Papanicolaou smear with manual screening 22 U/L 15-37 [facility] Thin prep Papanicolaou smear with manual screening 6 5-15 [facility] Thin prep Papanicolaou smear with manual screening 8.6 mg/L NO RANGE EST. [facility] Urine creatinine measurement (mass/volume)Ordered By: Ashley Smith on 01-24-2024 Creatinine (U) [Mass/Vol] 167.00 mg/dL NO RANGE EST. [facility] Whole blood hemoglobin A1c/t otal hemoglobin ratio (mass fraction)Ordered By: Ashley Smith on 01-24-2024 HbA1c (Bld) [Mass fraction] 5.4 % 3.8-5.6 [facility] Comment on above: Normal < 5.7 % Predi abetic 5.7 - 6.4 % Diabetic >or= 6.5 % Please note range changes. Basophil percentageOrdered B y: Emily Neri on 02-27-2024 Basophil percentage 5.34 ng/mL 0.0-4.0 [facility] Comment on above: This test was perfor med using the TPSA assay method for the[employer] chemistry system. Values obtained with differentassay methods cannot be used interchangably.When changing PSA assays in the course of monitoring apatient, additional sequential testing should be carriedout to confirm baseline values. Absolute lymphocyte countOrd ered By: Ashley Smith on 01-09-2023 Lymphocytes Auto (Unsp spec) [#/Vol] 0.93 10*3/uL 0.83-4.51 [facility] Basophil percentageOrdered B y: Ashley Mcguirenger on 01-09-2023 Basophils/100 WBC (Bld) 0.4 % 0-1 [facility] Bilirubin [Mass/Vol] 0.50 mg/dL 0.20-1.00 [facility] Comment on above: For patients on eltr ombopag therapy, use of Dimension Stanley TBIL is not recommended. Chloride [Moles/Vol] 103 mmol/L 98-107 [facility] Cholesterol [Mass/Vol] 157 mg/dL <[address] [facility] Comment on above: <200 mg/dL Desirable 200-240 mg/dL Borderline >240 mg/dL High Risk Eosinophils/100 WBC (Bld) 3.1 % 0-5 [facility] Glucose [Mass/Vol] 101 mg/dL 74-106 [facility] Comment on above: Fasting Glucose resu lt from 100 to 125 mg/dL suggests IMPAIRED HOMEOSTASIS per A.D.A. criteria. Neutrophils (Bld) [#/Vol] 3.7 10*3/uL 2.0-7.7 [facility] Neutrophils/100 WBC (Bld) 69.7 % 47-70 [facility] Potassium [Moles/Vol] 4.1 mmol/L 3.5-5.1 [facility] Protein [Mass/Vol] 7.4 g/dL 6.4-8.2 [facility] Sodium [Moles/Vol] 138 mmol/L 136-145 [facility] Triglyceride [Mass/Vol] 46 mg/dL <199 [facility] Comment on above: The drugs N-Acetylcy steine and Metamizole may falsely depress this assay.Serum Triglycerides Reference Interval Normal <150 mg/dL Borderline high 150 - 199 mg/dL High 200 - 499 mg/dL Very High > or = 500 mg/dL WBC (Bld) [#/Vol] 5.2 10*3/uL 4.4-11.0 [facility] Blood erythrocytes count (nu mber/volume)Ordered By: Ashley Smith on 01-09-2023 RBC (Bld) [#/Vol] 4.46 10*6/uL 4.6-6.2 [facility] Blood hemoglobin measurement (mass/volume)Ordered By: Ashley Smith on 01-09-2023 Hemoglobin (Bld) [Mass/Vol] 14.1 g/dL 13.0-16.5 [facility] Blood lymphocytes/100 leukoc ytesOrdered By: Ashley Smith on 01-09-2023 Lymphocytes/100 WBC (Bld) 17.8 % 19-41 [facility] Blood monocytes/100 leukocyt esOrdered By: Ashley Smith on 01-09-2023 Monocytes/100 WBC (Bld) 8.8 % 0-10 [facility] Blood platelet mean volumeOr dered By: Ashley Smith on 01-09-2023 Platelet mean volume (Bld) [Entitic vol] 9.8 fL 6.2-12.0 [facility] Determination of erythrocyte mean corpuscular volume (MCV)Ordered By: Ashley Smith on 01-09-2023 MCV (RBC) [Entitic vol] 93.9 fL 80-94 [facility] Hematocrit Auto (Bld) [Volum e fraction]Ordered By: Ashley Smith on 01-09-2023 Hematocrit (Bld) [Volume fraction] 41.9 % 40-54 [facility] Laboratory - Chemistry and C hemistry - challengeOrdered By: Ashley Smith on 01-09-2023 ALP [Catalytic activity/Vol] 66 U/L 45-117 [facility] ALT [Catalytic activity/Vol] 26 U/L 16-61 [facility] CO2 [Moles/Vol] 27.0 mmol/L 21.0-32.0 [facility] Globulin (S) [Mass/Vol] 3.8 g/dL 2.2-4.2 [facility] Urea nitrogen/Creatinine [Mass ratio] 25.5 mg/mg 10-20 [facility] Laboratory - Hematology and Cell countsOrdered By: Ashley Smith on 01-09-2023 Erythrocyte distribution width (RBC) [Entitic vol] 45.2 fL 35.1-43.9 [facility] Erythrocyte distribution width (RBC) [Ratio] 13.2 % 11.6-14.6 [facility] Immature granulocytes/100 WBC (Bld) 0.200 % 0.0-0.9 [facility] Comment on above: IG% - Immature Granu locytes (promyelocytes, myelocytes and metamyelocytes) > 1% indicates that a LEFT SHIFT is Present. MCH (RBC) [Entitic mass] 31.6 pg 27.0-32.0 [facility] Nucleated RBC/100 WBC (Bld) [Ratio] 0 % 0-5 [facility] MCHC Auto (RBC) [Mass/Vol]Or dered By: Ashley Smith on 01-09-2023 MCHC (RBC) [Mass/Vol] 33.7 g/dL 32-36 [facility] No Panel InformationOrdered By: Ashley Smith on 01-09-2023 Estimated GFR (MDRD) Amer 116 mL/min >60 [facility] Comment on above: GFR Calc Estimated GFR (MDRD) Non-Af Amer 96 mL/min >60 [facility] Comment on above: Non- GFR Calc Platelets bldOrdered By: Steven Smith on 01-09-2023 Platelets (Bld) [#/Vol] 242 10*3/uL 150-450 [facility] Serum or plasma albumin karina urement (mass/volume)Ordered By: Ashley Smith on 01-09-2023 Albumin [Mass/Vol] 3.6 g/dL 3.2-5.0 [facility] Serum or plasma albumin/glob ulin mass ratioOrdered By: Ashley Smith on 01-09-2023 Albumin/Globulin [Mass ratio] 0.9 {ratio} 0.9-2.4 [facility] Serum or plasma calcium karina urement (mass/volume)Ordered By: Ashley Smith on 01-09-2023 Calcium [Mass/Vol] 9.1 mg/dL 8.5-10.1 [facility] Serum or plasma cholesterol in HDL measurement (mass/volume)Ordered By: Ashley Smith on 01-09-2023 Cholesterol in HDL [Mass/Vol] 69 mg/dL >40 [facility] Comment on above: The drugs N-Acetylcy steine and Metamizole may falsely depress this assay. Reference Range HDL <40 mg/dL Low HDL Cholesterol HDL >or= 60 mg/dL High HDL Cholesterol Serum or plasma cholesterol in VLDL measurement (mass/volume)Ordered By: Ashley Smith on 01-09-2023 Cholesterol in VLDL [Mass/Vol] 9 mg/dL 5-40 [facility] Serum or plasma creatinine m easurement (mass/volume)Ordered By: Ashley Smith on 01-09-2023 Creatinine [Mass/Vol] 0.86 mg/dL 0.70-1.30 [facility] Comment on above: The validity of the calculated GFR & GFRAA in patients over 70 years has not been determined. Clinical correlation is essential. Serum or plasma low density lipoprotein (LDL) cholesterol measurement (mass/volume)Ordered By: Ashley Smith on 01-09-2023 Cholesterol in LDL [Mass/Vol] 79 mg/dL 0-130 [facility] Serum or plasma urea nitroge n measurement (mass/volume)Ordered By: Ashley Smith on 01-09-2023 Urea nitrogen [Mass/Vol] 22 mg/dL 7-18 [facility] Thin prep Papanicolaou smear with manual screeningOrdered By: Ashley Smith on 01-09-2023 Thin prep Papanicolaou smear with manual screening 20 U/L 15-37 [facility] Thin prep Papanicolaou smear with manual screening 8 5-15 [facility] Thin prep Papanicolaou smear with manual screening 9.3 mg/L NO RANGE EST. [facility] Whole blood hemoglobin A1c/t otal hemoglobin ratio (mass fraction)Ordered By: Ashley Smith on 01-09-2023 HbA1c (Bld) [Mass fraction] 5.6 % 3.8-5.6 [facility] Comment on above: Normal < 5.7 % Predi abetic 5.7 - 6.4 % Diabetic >or= 6.5 % Please note range changes. No Panel InformationOrdered By: Dr. Singh on 12-19-2022 Prostate Specific Antigen Total 6.61 ng/mL 0.0-4.0 [facility] Comment on above: This test was perfor med using the TPSA assay method for [employer] chemistry system. Values obtained with differentassay methods cannot be used interchangably.When changing PSA assays in the course of monitoring apatient, additional sequential testing should be carriedout to confirm baseline values. Encounters Encounter Date Encounter Type Care Provider Facility Start: 01-29-2025 End: 01-29-2025 ambulatory Rosario Olvera MD Work Phone: [facility] Work Phone: Start: 01-29-2025 End: 01-29-[address] [facility] Work Phone: Start: 01-29-2025 End: 01-29-2025 ambulatory Rosario Olvera Facility:[facility] Start: 01-24-2024 End: 01-24-2024 ambulatory [facility] Work Phone: Start: 01-24-2024 End: 01-24-2024 Patient encounter procedure [facility] Start: 01-01-2024 End: 01-01-2024 ambulatory [facility] Work Phone: Start: 01-01-2024 End: 01-01-2024 Patient encounter procedure [facility] Work Phone: Start: 01-09-2023 End: 01-09-2023 ambulatory [facility] Work Phone: Start: 01-09-2023 End: 01-09-2023 Patient encounter procedure [facility] Start: 12-19-2022 End: 12-19-2022 Patient encounter procedure [facility] Payers Date Payer Category Payer Self-pay [id number] 2025 Unknown [id number] Unknown SIVA [id number] Unknown [id number] Social History Date Type Detail Facility Start: 08-19-2014 End: 08-19-2014 Tobacco smoking status MSIS Unknown if ever smoked [facility] Start: 1960 Sex Assigned At Male [facility] Start: 08-19-2014 Tobacco smoking stat [facility] Never smoked tobacco (finding) [facility] Start: 02-03-2025 Sex Male (finding) [facility] Evaluation note Note Date & Type Note Facility Evaluation note No assessment information availa ble [facility] Work Phone: Reason for referral (narrative) Note Date & Type Note Facility Reason for referral (narrative) No reason for referral information available [facility] Work Phone: Chief Complaint and Reason for Visit Chief Complaint PSA Chief Complaint Admit Date January 29, 2025 7:5 8am Summary Purpose Family History No Family History Records Found Advance Directives No Advanced Directives Records Found Additional Source Comments Care Teams (unrecognized sec tion and content) Team Status: Active Member Role Status Dates Dr. Bryant Rios MD Family Provider Active Ashley Smith DO Primary Care Provider Active Team Status: Inactive Member Role Status Dates Ashley Smith DO Primary Care Provider Active Dr. Morris Singh MD Attending Provider Active Team Status: Inactive Member Role Status Dates Ashley Smith DO Primary Care Provi leanna, Attending Provider, Referring Provider Active Team Status: Inactive Member Role Status Dates Ashley Smith DO Primary Care Provider Active Emily Neri Attending Provider, Referring Provide r Active Team Status: Inactive Member Role Status Dates Ashley Smith DO Primary Care Provider, Attending Provider Active Team Status: Active Member Role Status Dates Dr. Mark Rios MD Family Provider Active Rosario Olvera MD Primary Care Provider Active Team Status: Inactive Member Role Status Dates Rosario Olvera MD Primary Care Provider Active St art: January 29, 2025 End: January 29, 2025 Rosario Olvera MD Attending Provider Active Start : January 29, 2025 End: January 29, 2025 Rosario Olvera MD Referring Provider Active Start : January 29, 2025 End: January 29, 2025 Goals (unrecognized section and content) Goals may be documented in a n alternate sectionGoals may be documented in an alternate sectionGoals may be documented in an alternate sectionGoals may be documented in an alternate section (unrecognized sect ion and content) No Status Records Found INFORMATION SOURCE (unrecogn ized section and content) DATE CREATED AUTHOR 02/04/2025 [facility] FOR RECORDS PERTAINING TO PATIENTS WHO ARE OR HAVE BEEN ENROLLED IN A CHEMICAL DEPENDENCY/SUBSTANCEABUSE PROGRAM, SOME INFORMATION MAY BE OMITTED. This clinical summary was aggregated from multiple sources. Caution should be exercised in using it in the provision of clinical care. This summary normalizes information from multiple sources, and as a consequence, information in this document may materially change the coding, format and clinical context of patient data. In addition, data may be omitted in some cases. CLINICAL DECISIONS SHOULD BE BASED ON THE PRIMARY CLINICAL RECORDS. [employer] provides no warranty or guarantee of the accuracy or completeness of information in this document.
[2025-07-02 09:25] LABS: PSA,Total- Diagnostic 4.88 ng/mL (0.00-4.00)
== END | disposition home or self-care (01) ==
PROVIDERS: PCP Family Medicine; Referring Provider Urology; Visit Provider Urology
DX: R97.20 Elevated prostate specific antigen [PSA] (principal)
CPT/HCPCS: 36415; 84153